=== PATIENT | female | born 1935 | race Caucasian/White ===

== ENCOUNTER 2016-11-09 09:49 | Day surgery (SDC) | payer OTHER ==
[2016-11-09 10:08] VITALS: BMI 31.8
[2016-11-09] MEDS ORDERED: PROPOFOL 20 ML ONE (11:09)
[2016-11-09 12:23] VITALS: PULSE 60; TEMP 97.3
[2016-11-09 12:54] VITALS: BP 133/43
== END 2016-11-09 13:05 | disposition home or self-care (01) ==
LOC: FASU-ENDO 09:49
PROVIDERS: ATTEND Internal Medicine Gastroenterology
PROC: 0DJD8ZZ Inspection of Lower Intestinal Tract, Via Natural or Artificial Opening Endoscopic (ICD-10-PCS; principal; 2016-11-09 11:55)
DX: Z86.010 Personal history of colon polyps (principal); K57.50 Diverticulosis of both small and large intestine without perforation or abscess without bleeding; Z98.0 Intestinal bypass and anastomosis status